=== PATIENT | male | born 1945 | race Caucasian/White ===

== ENCOUNTER 2017-10-19 07:37 | Day surgery (SDC) | payer MEDICARE, OTHER ==
[~2017-10-19 07:37] MED LIST: Lactated Ringers 1,000 ML IV SCH
[2017-10-19] MEDS ORDERED: Midazolam 1 MG/ML 2 ML SDV ONE (11:11)
[2017-10-19] MEDS ORDERED: Propofol 200 MG/20 ML SDV ONE (11:11)
--- NOTE | 2017-10-23 10:42 | OR ---
PREOPERATIVE DIAGNOSIS: Screening colonoscopy. POSTOPERATIVE DIAGNOSES: 1. Minimal sigmoid diverticulosis. 2. Tiny polyp at 20 cm, removed. PROCEDURE PROPOSED: Total flexible colonoscopy. PROCEDURE DONE: Total flexible colonoscopy with polypectomy x1. INDICATION: This is a 72-year-old gentleman, referred for screening colonoscopy. His last examination about 10 years ago. He denies any symptomatology, and he has a negative family history for colon cancer. TECHNIQUE: The patient was in the endoscopy suite, sedated per [employer] with propofol, placed in the left lateral decubitus position. The flexible video colonoscope was then passed transanally and under visualization advanced to the cecum. Examination revealed a normal ascending, transverse, descending, sigmoid colon, other than some mild diverticulosis in the sigmoid, and then at 20 cm, there was a very tiny polyp removed with one bite of the cold biopsy forceps and submitted for pathologic examination. The remainder of the rectosigmoid was normal as the scope was then withdrawn. He tolerated procedure well. FINAL IMPRESSION: 1. Minimal sigmoid diverticulosis. 2. Insignificant polyp at 20 cm, removed. PLAN: It is felt that this likely is a hyperplastic nodule, not an adenomatous polyp, and I feel at his age, he likely does not need any future screening colonoscopies. SCM: 10/19/2017 11:43:53 MODL: 10/19/2017 17:31:27 /[id number]
--- NOTE | 2017-11-06 08:30 | LETTER ---
11/06/2017 Evgeny Escobedo. RE: EVGENY ESCOBEDO : 1945 Dear Meek, The polyp removed from your colon was a benign, insignificant polyp known as a hyperplastic polyp. This type of polyp does not have any malignant potential and does not increase your risk for colon cancer. I therefore feel that you likely do not need any future colonoscopic exams based on this finding. If you have any further questions, feel free to call. Respectfully,
== END 2017-10-19 12:35 | disposition home or self-care (01) ==
LOC: VM.SDS 07:37
PROVIDERS: ATTEND Surgery
DX: Z12.11 Encounter for screening for malignant neoplasm of colon (principal); K63.5 Polyp of colon; K57.30 Diverticulosis of large intestine without perforation or abscess without bleeding; I10 Essential (primary) hypertension; N40.0 Benign prostatic hyperplasia without lower urinary tract symptoms; F32.9 Major depressive disorder, single episode, unspecified; K21.9 Gastro-esophageal reflux disease without esophagitis; J44.9 Chronic obstructive pulmonary disease, unspecified; E78.5 Hyperlipidemia, unspecified; Z88.1 Allergy status to other antibiotic agents; Z88.2 Allergy status to sulfonamides; Z79.82 Long term (current) use of aspirin; Z79.899 Other long term (current) drug therapy; Z87.891 Personal history of nicotine dependence
CPT/HCPCS: 00810; 45380; 88305; J2250; J2704; J7120